=== PATIENT | female | born 1970 | race Caucasian/White ===

== ENCOUNTER 2025-08-20 11:53 | Emergency (ER) | payer OTHER ==
[~2025-08-20] VITALS: Ht 157.5 cm; Wt 95.9 kg
--- NOTE | 2025-08-20 12:25 | Physician Documentation ---
History of Present Illness ~ Chief Complaint: Foot pain Stated Complaint: R FOOT PAIN Time Seen by MD: 11:58 OK to notify your PCP?: Yes Source: patient Mode of Arrival: POV Exam Limitations: no limitations HPI 54-year-old female who is here with right mid plantar foot pain which started yesterday. She states she stepped down and felt a pop in her foot in his had pain in the center of the bottom of her foot since. She states that the pain is worse when she weight bears on her foot. No pre arrival treatment other than taking Tylenol which has provided minimal improvement of her pain. She has not noticed any swelling or skin color changes. Tetanus witin 5 years: No Medication Reconciliation Allergies: Coded Allergies: gabapentin (Verified Allergy, Intermediate, swelling, 08/20/25) pregabalin (Verified Allergy, Intermediate, swelling, 08/20/25) Past Medical History Alcohol Use: None Drug Use: none Lives In: Home Review of Systems All Other Systems at this time: Reviewed and Negative Physical Exam Vital Signs: Temperature: 96.6, Source: Temporal, Heart Rate: 75, Respiratory Rate: 19, BP: 112/66, Pulse Oximetry: 99, Weight: 95.900 Oxygen Flow Rate: 0 Physical Exam General Appearance: Alert, WD/WN. NAD. HEENT: NCAT, PERRL, EOMI. Neck: Supple, trachea midline. Cardiovascular: RRR. No m/r/g. Lungs: CTAB. Breathing unlabored Extremities: Right foot plantar surface mid foot area is ttp, there appears to be very slight swelling of her foot when compared to left foot. Pedal pulses 2+. No ecchymosis or erythema. AROM of ankle full. Skin: Warm/dry, normal color Neurological: Alert and oriented x4, normal gait. Psychiatric: Affect congruent with mood. Procedures Procedures EXAM: DI FOOT, COMPLETE (3VW MIN) INDICATION: FOOT PAIN TECHNIQUE:: 3 views of the right foot COMPARISON: None FINDINGS/IMPRESSION: Inconspicuous cortical irregularities with transverse area of radiolucency which may represent nondisplaced fractures of the bases of the 2nd and 3rd metatarsals. This may be exaggerated secondary to dorsal osteophytosis however correlate with clinical exam for nondisplaced fractures. Trace plantar calcaneal spur. There is no acute fracture, osseous malalignment, or aggressive focal osseous lesion. Bipartite medial hallux sesamoid. Surrounding subcutaneous adipose tissue edema Electronically Signed by:DAVY WILLIAMSON MD Splinting Location: RIGHT FOOT Pre-Made Type: WALKING BOOT Pre-Proc Neuro Vasc Exam: normal Post-Proc Neuro Vasc Exam: normal Splint Placed By: international relations professor Tolerated Procedure Well?: yes, no complications Progress Results/Orders Results/Orders Orders - AMARILIS SANCHEZ Foot, Complete (3vw Min) (08/20/25 12:04) Ortho Orders (08/20/25 12:12) Completed Orders - AMARILIS SANCHEZ Foot, Complete (3vw Min) (08/20/25 12:04) Vital Signs 08/20/25 11:59 Temp 96.6 Pulse 75 Resp 19 B/P (MAP) 112/66 Pulse Ox 99 O2 Flow Rate 0 Medical Decision Making Additional information obtaine: N/A Findings n/a General Diff Dx:Considerations: Unlikely: Other Knee Diff Dx:Considerations: Unlikely: Other Ankle Diff Dx:Considerations: Unlikely: Other Foot Diff Dx:Considerations: Include: Abrasion, Arthritis, Cellulitis, Contusion, Dislocation, DJD, Fracture-metatarsal, Fracture-phalynx, Fracture- tarsal, Gout, Hematoma, Ingrown toenail, Laceration, Malunion, Neurovascular injury, Open fracture, Paronychia, Puncture, Rheumatoid, Sprain, Septic, Subungual hematoma, Ulcer, Other Toe Diff Dx:Considerations: Unlikely: Other Additional Comment Xray negative for fracture. pain localized to plantar surface of foot and is acute, not consistent with DVT or vascular issue. Pedal pulses 2+ bilaterally. Departure Time of Disposition: 12:26 Disposition: 01 HOME / SELF CARE / HOMELESS Impression: Primary Impression: Metatarsal fracture Qualified Codes: S92.324A - Nondisplaced fracture of second metatarsal bone, right foot, initial encounter for closed fracture Additional Impression: Foot pain Qualified Codes: M79.671 - Pain in right foot Condition: Stable Discharge Instructions: Sprains Additional Instructions: ICE, ELEVATE, FOLLOW UP WITH PCP IN A WEEK WEAR WALKING BOOT COPY OF XRAY BELOW: EXAM: DI FOOT, COMPLETE (3VW MIN) INDICATION: FOOT PAIN TECHNIQUE:: 3 views of the right foot COMPARISON: None FINDINGS/IMPRESSION: Inconspicuous cortical irregularities with transverse area of radiolucency which may represent nondisplaced fractures of the bases of the 2nd and 3rd metatarsals. This may be exaggerated secondary to dorsal osteophytosis however correlate with clinical exam for nondisplaced fractures. Trace plantar calcaneal spur. There is no acute fracture, osseous malalignment, or aggressive focal osseous lesion. Bipartite medial hallux sesamoid. Surrounding subcutaneous adipose tissue edema Electronically Signed by:DAVY WILLIAMSON MD Referrals: NO PRIMARY CARE PROVIDER (PCP) Education Educated: Patient Educated regarding: diagnosis, treatment, need for follow up Signature Scribe Signature: X Attestation: AMARILIS YOUNG Aug 20, 2025 12:25
--- NOTE | 2025-08-20 12:37 | RADIOLOGY REPORT ---
EXAM: DI FOOT, COMPLETE (3VW MIN) INDICATION: FOOT PAIN TECHNIQUE:: 3 views of the right foot COMPARISON: None FINDINGS/IMPRESSION: Inconspicuous cortical irregularities with transverse area of radiolucency which may represent nondisplaced fractures of the bases of the 2nd and 3rd metatarsals. This may be exaggerated secondary to dorsal osteophytosis however correlate with clinical exam for nondisplaced fractures. Trace plantar calcaneal spur. There is no acute fracture, osseous malalignment, or aggressive focal osseous lesion. Bipartite medial hallux sesamoid. Surrounding subcutaneous adipose tissue edema
[2025-08-20 13:24] VITALS: BP 118/68; PULSE 67; RESP 16; TEMP 96.6; O2SAT 98
== END 2025-08-20 13:25 | disposition home or self-care (01) ==
LOC: ER 11:54
DX: S92.324A Nondisplaced fracture of second metatarsal bone, right foot, initial encounter for closed fracture (principal); Z88.8 Allergy status to other drugs, medicaments and biological substances; X58.XXXA Exposure to other specified factors, initial encounter; Y93.89 Activity, other specified; Y92.89 Other specified places as the place of occurrence of the external cause; Y99.8 Other external cause status
CPT/HCPCS: 73630; 99283; L3260; L4360